=== PATIENT | female | born 1950 | race Caucasian/White ===

== ENCOUNTER → 2018-04-14 | Outpatient (CLI) | payer OTHER ==
--- NOTE | 2018-04-14 12:54 | 2DMMODE ---
[place] [address] 2 D/M-MODE ECHOCARDIOGRAM Name: ADELIA ROSADO Room: [facility]#: [id number] Admission: 04/14/18 Attend Phys: Vasquez Conte, Discharge: Date of : 46 Date of Service: 04/14/18 1253 Report #: [id number] THIS REPORT FOR: //name// APPROVED REPORT Study performed: 04/14/2018 10:32:09 EXAM: Comprehensive 2D, Doppler, and color-flow Echocardiogram Patient Location: Out-Patient Status: routine BSA: 1.80 HR: 70 bpm BP: 142/80 mmHg Other Information Study Quality: Good Indications Dyspnea 2D Dimensions LVEF(%): 57.37 (>50%) IVSd: 12.43 (7-11mm) LVOT Diam: 19.21 (18-24mm) LVDd: 41.29 mm PWd: 10.75 (7-11mm) Ascending Ao: 33.54 (22-36mm) LVDs: 28.99 (25-40mm) Aortic Root: 25.77 mm Saez's LVEF: 57.37 % Volumes Left Atrial Volume (Systole) LA ESV Index: 11.90 mL/m2 Aortic Valve AoV Peak Matt.: 1.01 m/s AO Peak Gr.: 4.12 mmHg LVOT Max P.84 mmHg AO Mean Gr.: 2.36 mmHg LVOT Mean P.47 mmHg LVOT Max V: 0.84 m/s AO V2 VTI: 21.48 cm LVOT Mean V: 0.56 m/s MENDY (VTI): 2.74 cm2 LVOT V1 VTI: 20.28 cm Mitral Valve E/A Ratio: 0.70 MV Decel. Time: 250.70 [place] [address] 2 D/M-MODE ECHOCARDIOGRAM Name: ADELIA ROSADO Room: [facility]#: [id number] Admission: 04/14/18 Attend Phys: Vasquez Conte, Discharge: Date of : 46 Date of Service: 04/14/18 1253 Report #: [id number] MV E Max Matt.: 0.58 m/s MV PHT: 72.70 ms MVA (PHT): 3.03 cm2 TDI E/Lateral E': 8.29 E/Medial E': 7.25 Medial E' Matt.: 0.08 m/s Lateral E' Matt.: 0.07 m/s Pulmonary Valve PV Peak Matt.: 0.91 m/s PV Peak Gr.: 3.32 mmHg Tricuspid Valve RAP Estimate: 5.00 mmHg TR Peak Gr.: 16.66 mmHg RVSP: 21.66 mmHg PA Pressure: 21.66 mmHg Left Ventricle The left ventricle is normal size. There is normal LV segmental wall motion. There is normal left ventricular wall thickness. Left ventricular systolic function is normal. The left ventricular ejection fraction is within the normal range. LVEF is 55-60%. Grade I - abnormal relaxation pattern. Right Ventricle The right ventricle is normal size. The right ventricular systolic function is normal. Atria The left atrium size is normal. The right atrium size is normal. Aortic Valve The aortic valve is normal in structure. No aortic regurgitation is present. There is no aortic valvular stenosis. Mitral Valve The mitral valve is normal in structure. Trace mitral regurgitation. No evidence of mitral valve stenosis. Tricuspid Valve The tricuspid valve is normal in structure. Trace tricuspid regurgitation. Pulmonic Valve The pulmonary valve is normal in structure. There [place] [address] 2 D/M-MODE ECHOCARDIOGRAM Name: ADELIA ROSADO Room: [facility]#: [id number] Admission: 04/14/18 Attend Phys: Vasquez Conte, Discharge: Date of : 46 Date of Service: 04/14/18 1253 Report #: [id number] valvular regurgitation. Great Vessels The aortic root is normal in size. IVC is normal in size and collapses with >50% inspiration Pericardium There is no pericardial effusion. <Conclusion> Left ventricular systolic function is normal. The left ventricular ejection fraction is within the normal range. <ELECTRONICALLY SIGNED> By: Josue Gracia MD, FACC 04/14/18 1253 1253 1253 Josue Gracia MD, FACC /INF
== END ==
LOC: M.CT 09:38
DX: Z13.6 Encounter for screening for cardiovascular disorders (principal); R06.00 Dyspnea, unspecified; I48.0 Paroxysmal atrial fibrillation

== ENCOUNTER → 2018-12-23 | Outpatient (CLI) | payer MEDICARE, BC, OTHER | LOC: M.RAD 08:42 | DX: M81.8 Other osteoporosis without current pathological fracture (principal); Z88.8 Allergy status to other drugs, medicaments and biological substances; Z88.5 Allergy status to narcotic agent; Z78.0 Asymptomatic menopausal state ==